=== PATIENT | female | born 2000 | race Two or more races ===

== ENCOUNTER 2025-01-22 22:41 | Emergency (ER) | payer MEDICAID, SELFPAY ==
[2025-01-22 22:41] VITALS: BMI 28.3
--- NOTE | 2025-01-22 23:13 | XR_ITS ---
Examination: CT cervical spine without contrast 2-D sagittal reconstructions 2-D coronal reconstructions 3-D reconstructions. Exam date and time:January 23, 2025, 0003 hours INDICATIONS: Neck pain beginning 2 months ago. CTDI:vol (mGy) 13 DLP: (mGycm) 275 Technique: Multiple 2 mm axial sections of the cervical spine have been obtained. The coronal and sagittal reconstructions have been obtained. 3-D reconstructions have been obtained. Low dose protocols were performed. One or more of the following dose reduction techniques were used; automated exposure control, adjustment of the mA and/or KV according to patient size, use of iterative reconstruction technique. Findings: Axial sections demonstrate intact base of the skull. C1 exhibit satisfactory relationship to the odontoid. No acute cervical vertebral body fracture seen. Alignment posterior spinous processes satisfactory. Impression: No acute cervical fracture. If neck pain persists, consider MRI cervical spine without contrast follow-up
[2025-01-22 23:14] VITALS: BP 118/76; PULSE 75; RESP 18; TEMP 36.8; O2SAT 95
[2025-01-23 00:34] LABS: HCG,Qualitative Serum Negative
--- NOTE | 2025-01-23 00:50 | PRELIM_ITS ---
CT scan of the cervical spine without intravenous contrast (axial sections with sagittal and coronal reformats). January 23, 2025 0003 hours Clinical History: injury Comparison: None Findings: There is no fracture, traumatic subluxation or other acute osseous abnormality of the cervical spine. There is straightening of the cervical spine. The prevertebral soft tissues are unremarkable. Left tonsillar crypt calcification noted. Impression: No acute osseous abnormality of the cervical spine. Straightening of the cervical spine may indicate muscle spasm. Report Electronically Signed By: Vincent Hayes 01/23/2025 12:49:46 AM [EST]
--- NOTE | 2025-01-23 01:29 | PD.EDNECK ---
ED Neck Injury Pain RME/HPI General Chief Complaint: Neck Pain/Injury Stated Complaint: NECK PAIN Time Seen by Provider: 01/22/25 23:00 Arrival date/time: 01/22/25 22:41 This is a case of 24-year-old female who came in in the emergency room due to neck pain for 2 days patient have on and off pain for 2 months already and seen by the primary care physician and was given with muscle spasm medication due to persistence of the pain thus patient decided to sought consult here in the emergency room denies any injury denies any numbness weakness tingling sensation incontinence to urine or stool denies any headache or dizziness denies any recent injury Limitations: no limitations Related Data Home Medications ?Medication ?Instructions ?Recorded ?Confirmed vitamins-iron fumarate 27 1 tab PO QDAY 08/19/19 08/08/22 mg iron-folic acid 0.8 mg tablet ( Vitamin) Previous Rx's ?Medication ?Instructions ?Recorded acetaminophen 300 mg-codeine 30 mg 1 tab PO Q8H PRN pain #14 tabs 08/10/22 tablet acetaminophen 500 mg tablet (Pain 500 mg PO Q6H PRN fever or pain 08/10/22 Relief (acetaminophen)) #30 tabs ibuprofen 800 mg tablet 800 mg PO TID PRN pain #20 tabs 08/10/22 meclizine 25 mg tablet 25 mg PO QDAY PRN dizziness #14 12/30/23 tabs acetaminophen-caffeine 500 mg-65 1 tab PO Q6H PRN pain #30 tabs 12/31/23 mg tablet (Excedrin Tension Headache) cyclobenzaprine 10 mg tablet 10 mg PO BID PRN muscle spasm #10 01/23/25 tabs ibuprofen 600 mg tablet 600 mg PO Q6H PRN pain #20 tabs 01/23/25 lidocaine 5 % topical patch 1 patch topical QDAY PRN pain 01/23/25 (Lidoderm) (scale score 1-3) #15 ea Allergies Allergy/AdvReac Type Severity Reaction Status Date / Time No Known Allergies Allergy Verified 01/22/25 22:43 Review of Systems Review of Systems Systems Reviewed: All systems reviewed, normal except as documented Constitutional Constitutional: Reports system reviewed and no additional complaints, except as documented and Reports as per HPI Cardiovascular Cardiovascular: Reports system reviewed and no additional complaints, except as documented and Reports as per HPI Respiratory Respiratory: Reports system reviewed and no additional complaints, except as documented and Reports as per HPI Gastrointestinal Gastrointestinal: Reports system reviewed and no additional complaints, except as documented and Reports as per HPI Genitourinary Genitourinary: Reports system reviewed and no additional complaints, except as documented and Reports as per HPI Musculoskeletal Musculoskeletal: Reports system reviewed and no additional complaints, except as documented and Reports as per HPI Neurologic Neurologic: Reports system reviewed and no additional complaints, except as documented and Reports as per HPI Past Medical History Past Medical History NEUROLOGIC: Negative Neurological Disorders or Seizures CARDIAC: Negative Cardiac Disorders or Congestive Heart Failure RESPIRATORY: Negative Chronic Obstructive Pulmonary Disease (COPD) GASTROINTESTINAL: Negative Gastrointestinal Disorders, Hepatitis or Colorectal Cancer GENITOURINARY: Negative Genitourinary Disorders, Renal Disease or Prostate Cancer REPRODUCTIVE: Negative Breast Cancer, Pelvic Inflammatory Disease or Testicular Cancer MUSCULOSKELETAL: Negative Musculoskeletal Disorders or Bone Cancer ENDOCRINE: Negative Endocrine Disorders, Diabetes Mellitus Type 1 or Diabetes Mellitus Type 2 HEMATOLOGIC: Negative Blood Disorders PSYCHO/SOCIAL: Negative Depression or Anxiety OTHER HISTORY: Negative Hospitalization, Autoimmune Disease, Down Syndrome, Developmental Delay, Shingles, Falls, Blood Transfusions, Blood Transfusion Reaction, Anesthesia Reactions, Organ Transplant, Chemotherapy, Radiation Therapy, Hyperbaric Therapy, MRSA, VRSA, Vancomycin-Resistant Enterococci, Human Immunodeficiency Virus (HIV), Chicken Pox, Measles, Mumps, Rubella (Romansh Measles), Pertussis, Clostridium Difficile, Cancer, Breast Cancer, Cervical Cancer, Colorectal Cancer, Lung Cancer, Ovarian Cancer, Prostate Cancer or Testicular Cancer Family History FAMILY HISTORY: Negative Family Psychiatric Problems, Family Respiratory Disorders, Family Cardiac Disorders, Family Gastrointestinal Problems, Family Cancer, Family Surgery or Family Anesthesia Reaction Surgical History SURGICAL: Negative Cardiac Surgery, Endocrine Surgery, Section or Organ Transplant Social History SMOKING STATUS: Never smoker SECOND HAND EXPOSURE: No ED Exam General Limitations: Present no limitations General appearance: Present alert, in no apparent distress and other (Is awake alert oriented not in distress nontoxic looking well-hydrated well-nourished) Head Head exam: Present atraumatic, normocephalic and normal inspection Eye Eye exam: Present normal appearance, PERRL and EOMI ENT ENT exam: Present normal exam, normal oropharynx and mucous membranes moist Neck Neck exam: Present normal inspection, full ROM, trachea midline and tenderness (Mild tenderness on the right side of posterior neck no crepitation no deformity no redness no swelling no paraspinal no paravertebral tenderness ROM is intact but with pain neurovascular intact); Absent meningismus, lymphadenopathy or thyromegaly Chest Chest inspection: Present normal inspection and symmetric chest wall rise; Absent tenderness Respiratory Respiratory exam: Present normal lung sounds bilaterally; Absent respiratory distress, wheezes, stridor, accessory muscle use or prolonged expiratory phase Cardiovascular Cardiovascular exam: Present regular rate, normal rhythm and normal heart sounds; Absent bradycardia, tachycardia, irregular rhythm, systolic murmur or diastolic murmur Abdominal Exam Abdominal exam: Present soft and normal bowel sounds Extremities Exam Extremities exam: Present normal inspection and full ROM Back Exam Back exam: Present normal inspection and full ROM; Absent tenderness, CVA tenderness (R), CVA tenderness (L), muscle spasm, paraspinal tenderness, vertebral tenderness, rashes, sciatic notch tenderness (R), sciatic notch tenderness (L), straight leg raise (R) or straight leg raise (L) Neurological Exam Neurological exam: Present alert, oriented X3, CN II-XII intact, normal gait and reflexes normal; Absent motor sensory deficit Psychiatric Psychiatric exam: Present normal affect and normal mood Skin Skin exam: Present warm, dry, intact and normal color Course Quality Measures none Orders Category Date Time Status CT cervical spine wo con Stat Exams 01/22/25 23:13 Taken HCG,Qualitative Serum Stat Lab 01/22/25 23:45 Completed Dexamethasone Inj [Decadron Inj] Med 01/23/25 01:22 Pending 10 mg IM X1 ONE Ketorolac Inj [Toradol Inj] Med 01/23/25 01:22 Pending 30 mg IM X1 ONE Vital Signs Vital signs: Vital Signs Temperature 98.2 F 01/22/25 23:14 Pulse Rate 75 01/22/25 23:14 Respiratory Rate 18 01/22/25 23:14 Blood Pressure 118/76 01/22/25 23:14 Pulse Oximetry (%) 95 01/22/25 23:14 Oxygen Delivery Method Room Air 01/22/25 23:14 Patient oxygen saturation is 95% in room air Neck Pain MDM Narrative MDM Narrative:: This is a case of 24-year-old female who came in in the emergency room due to neck pain for 2 days patient have on and off pain for 2 months already and seen by the primary care physician and was given with muscle spasm medication due to persistence of the pain thus patient decided to sought consult here in the emergency room denies any injury denies any numbness weakness tingling sensation incontinence to urine or stool denies any headache or dizziness denies any recent injury physical examination patient noted to have mild to moderate tenderness on the right side of the neck but no crepitation no deformity no paraspinal no paravertebral tenderness ROM intact but with pain neurovascular intact CT scan is normal only muscle spasm patient was given dexamethasone and Toradol patient condition markedly improved she was advised to see PCP to be referred to neurosurgeon to have MRI to ruled out herniated disc and pain management doctor for pain control for any worsening symptoms return to the emergency room was advised no signs and symptoms of cauda equina Patient was discharged with comfortable condition walking with stable gait. Patient verbalized no further complains explained diagnosis and answered patient question. Patient is comfortable with the proposed management plan including the need to follow up with his/her primary care physician and any specialist if applicable Discussed patient for any urgent condition or worsening sx, He/She needed to go to emergency room immediately or call 911. Patient acknowledge the responsibility to follow up as instructed and to monitor her/his symptoms. For any persistence of the symptoms for more than 3-5 days return precaution advised. Discussed the result of the test and was given printed discharge instruction Patient data External records reviewed:: [facility] previous records Clinical information provided by:: patient Social determinants that could affect healthcare access:: none Patient has the following chronic illnesses:: None How is presenting disease/condition affected by chronic disease/condition?: no chronic disease Evaluation data The following diagnostics were reviewed and interpreted by me:: radiology exam(s) Lab and/or radiology exams considered but not ordered:: Reviewed Interpretation Summary: Reviewed Medications / Prescriptions Medications or Prescriptions considered but not ordered:: Given Medication administrations:: Medication Administration History Dexamethasone Sodium Phosphate (Dexamethasone Sod Phos Inj 10 Mg/Ml Vial) 10 mg IM X1 ONE Stop: 01/23/25 01:23 Ketorolac Tromethamine (Ketorolac Inj 60 Mg/2 Ml Vial) 30 mg IM X1 ONE Stop: 01/23/25 01:23 Given Consultations Consultation(s) initiated? (list below): No Diagnosis Neck Differential Diagnosis: other (Neck muscle spasm) Most likely diagnosis given after review of the tests above:: Neck muscle spasm Admission Indicated Admission indicated?: not indicated Explain why admission is indicated or not indicated:: Not indicated Admission Request Was there a request for admission?: No Admission Attestation Admission request attestation: Not indicated Disposition Plan Disposition Plan: Discharge Discharge Attestation Discharge Attestation: The patient and all family members were given an opportunity to ask questions and understood the discharge instructions. Discharge instructions specifically effects, indications for sooner follow up or return to the emergency department, and the expected course of current diagnosis. Patient condition: Stable Discharge Plan Plan Patient Disposition: HOME (Self Care) Patient condition on transfer: Stable Prescriptions/Referrals Prescriptions/Med Rec: New ibuprofen 600 mg tablet 600 mg PO Q6H PRN (Reason: pain) Qty: 20 0RF cyclobenzaprine 10 mg tablet 10 mg PO BID PRN (Reason: muscle spasm) Qty: 10 0RF lidocaine [Lidoderm] 5 % adhesive patch,medicated 1 patch topical QDAY PRN (Reason: pain (scale score 1-3)) Qty: 15 0RF Rx Instructions: leave on most painful area for up to 12 hrs No Action Vitamin 27 mg iron- 0.8 mg Tablet 1 tab PO QDAY acetaminophen [Pain Relief (acetaminophen)] 500 mg tablet 500 mg PO Q6H PRN (Reason: fever or pain) Qty: 30 0RF ibuprofen 800 mg tablet 800 mg PO TID PRN (Reason: pain) Qty: 20 0RF acetaminophen-codeine 300-30 mg tablet 1 tab PO Q8H PRN (Reason: pain) Qty: 14 0RF meclizine 25 mg tablet 25 mg PO QDAY PRN (Reason: dizziness) Qty: 14 0RF Excedrin Tension Headache 500-65 mg tablet 1 tab PO Q6H PRN (Reason: pain) Qty: 30 0RF Referrals: No Primary/Family,Physician [Primary Care Provider] - In 1 week Problem List Clinical Impression: Neck muscle spasm Patient/Caregiver Discharge Instructions Education Materials: ED Neck Spasm, No Trauma Additional Instructions: Follow-up with your primary care physician in 2 days for reevaluation and to be referred to neurosurgeon for MRI of the neck to rule out herniated disc and pain management doctor for pain control worsening of symptoms or any emergent concerns such as numbness weakness tingling sensation or incontinence to urine or stool call 911 or go to the nearest emergency room take your medication as directed ice pack and warm compress as needed for pain Print Language: Lao Stand Alone Forms: Mai Award Info., Patient Portal Info Letter PA/SCIENTIFIC PROGRAMMER ANALYST Supervising Physician IDRIS/SCIENTIFIC PROGRAMMER ANALYST Supervising Physician: Dr. Leonardo Cortes
[2025-01-23] MEDS: KETOROLAC INJ 60 MG/2 ML VIAL 30 MG IM (01:49)
[2025-01-23] MEDS: DEXAMETHASONE SOD PHOS INJ 10 MG/ML VIAL IM (01:49)
== END 2025-01-23 01:53 | disposition home or self-care (01) ==
PROVIDERS: Nurse Practitioner Family; Emergency Provider Emergency Medicine
DX: M62.838 Other muscle spasm (principal)
CPT/HCPCS: 36415; 72125; 84703; 96372; 99283; J1100; J1885